=== PATIENT | female | born 1930 | race Caucasian/White ===

== ENCOUNTER 2017-02-09 13:53 | Inpatient (IN) | payer OTHER, MEDICAID ==
[~2017-02-09] VITALS: Ht 144.8 cm; Wt 67.6 kg
[2017-02-09] MEDS ORDERED: MORPHINE SULFATE 4 MG/ML CPJ (NOT FOR IM USE) IV STA (14:44)
[2017-02-09] MEDS ORDERED: NITROGLYCERIN OINT 1GM/INCH UDPKT TD STA (14:44)
[2017-02-09] MEDS ORDERED: ASPIRIN 325MG EC TABLET PO ONE (14:45)
[2017-02-09 15:18] LABS: BASOPHILS % 0.9 % (0.0-2.0); HEMATOCRIT. 35.5 % (36.0-48.0); HEMOGLOBIN. 11.4 g/dL (12.0-16.0); LYMPHOCYTES % 20.9 % (20.0-50.0); MEAN CORPUSCULAR HEMOGLOBIN 28.3 pg (28.0-32.0); MEAN CORPUSCULAR VOLUME 88.3 fL (81.0-99.0); MEAN PLATELET VOLUME 9.1 fl (7.4-10.4); NEUTROPHILS % 67.2 % (40.0-76.0); PLATELET 163 x1000/uL (130-400); RED BLOOD CELL COUNT 4.02 mill/uL (4.2-5.4); RED CELL DISTRIBUTION WIDTH 24.7 % (11.6-14.6)
[2017-02-09 15:25] LABS: CHLORIDE 103 mEq/L (98-107)
[2017-02-09 15:30] LABS: CARBON DIOXIDE 32 mEq/L (21-32)
[2017-02-09 15:35] LABS: TROPONIN I < 0.02 ng/mL (0.00-0.04)
[2017-02-09 16:16] LABS: PLATELET ESTIMATE NORMAL
[2017-02-09 21:30] VITALS: BP 151/92
[2017-02-09] MEDS ORDERED: CALCIUM (22:37)
[2017-02-09] MEDS ORDERED: FLOV44 IH (22:37)
[2017-02-09] MEDS ORDERED: CARV12.545 PO (22:37)
[2017-02-09] MEDS ORDERED: DABI150C PO (22:37)
[2017-02-09] MEDS ORDERED: LACT1CAP68 PO (22:37)
[2017-02-09] MEDS ORDERED: FURO20TA4 PO (22:37)
[2017-02-09] MEDS ORDERED: FERR325T6 PO (22:37)
[2017-02-09] MEDS ORDERED: AMIO100T4 PO (22:37)
[2017-02-09] MEDS ORDERED: LEVO88TA7 PO (22:37)
[2017-02-09] MEDS ORDERED: LOSA25TA12 PO (22:37)
[2017-02-09] MEDS ORDERED: CHOL100044 PO (22:37)
[2017-02-09] MEDS ORDERED: GLUC100017 PO (22:37)
[2017-02-09] MEDS ORDERED: MECL-109 PO (22:37)
[2017-02-09] MEDS ORDERED: ALBU18HF2 IH (22:37)
[2017-02-09] MEDS ORDERED: ACET167L14 PO (22:37)
[2017-02-09] MEDS ORDERED: ONDANSETRON HCL 4MG/2ML VIAL IV PRN (23:00)
[2017-02-09] MEDS ORDERED: ACETAMINOPHEN 325MG TABLET PO PRN (23:00)
[2017-02-09] MEDS ORDERED: CLONIDINE 0.1MG TABLET PO PRN (23:00)
[2017-02-09] MEDS ORDERED: METOPROLOL TARTRATE 50MG TABLET PO SCH (23:45)
[2017-02-10] VITALS (7 sets, daily range): BP systolic 120–155; BP diastolic 38–78
[2017-02-10] MEDS: METHYLPREDNISOLONE SOD SUCC 40 MG/ML VIAL IV SCH ×5 (00:10→22:50)
[2017-02-10] MEDS: ENOXAPARIN 40MG/0.4ML SYR SUBCUT SCH ×2 (00:12→22:39)
[2017-02-10 06:22] LABS: BASOPHILS % 0.8 % (0.0-2.0); EOSINOPHILS % 0.3 % (0.0-5.0); HEMOGLOBIN. 11.4 g/dL (12.0-16.0); LYMPHOCYTES % 14.1 % (20.0-50.0); MEAN CORPUSCULAR HEMOGLOBIN 28.3 pg (28.0-32.0); MEAN CORPUSCULAR VOLUME 88.9 fL (81.0-99.0); MEAN PLATELET VOLUME 8.4 fl (7.4-10.4); MONOCYTES % 2.2 % (2.0-8.0); NEUTROPHILS % 82.6 % (40.0-76.0); PLATELET 156 x1000/uL (130-400); RED BLOOD CELL COUNT 4.05 mill/uL (4.2-5.4); RED CELL DISTRIBUTION WIDTH 24.2 % (11.6-14.6)
[2017-02-10 07:40] LABS: CARBON DIOXIDE 32 mEq/L (21-32); CHLORIDE 101 mEq/L (98-107); CREATINE KINASE 61 IU/L (26-192); CREATINE KINASE MB FRACTION 1.8 ng/mL (0.5-3.6); HDL CHOLESTEROL 86 mg/dL (40-59); LDL CHOLESTEROL 60 mg/dL (5-100); T4 FREE 1.01 ng/dL (0.76-1.46); TROPONIN I < 0.02 ng/mL (0.00-0.04)
[2017-02-10] MEDS: IPRATROPIUM/ALBUTEROL 0.5-3(2.5)MG/3ML NEB INH SCH ×4 (08:47→21:14)
[2017-02-10] MEDS ORDERED: FUROSEMIDE 40MG/4ML VIAL IV SCH (09:00)
[2017-02-10] MEDS ORDERED: METOPROLOL TARTRATE 50MG TABLET PO SCH (09:00)
[2017-02-10] MEDS: LEVOTHYROXINE SODIUM 100MCG TABLET PO SCH (09:16)
[2017-02-10 17:16] LABS: CREATINE KINASE 66 IU/L (26-192); CREATINE KINASE MB FRACTION 1.6 ng/mL (0.5-3.6); TROPONIN I < 0.02 ng/mL (0.00-0.04)
[2017-02-10] MEDS: FUROSEMIDE 40MG/4ML VIAL IVP SCH (18:23)
[2017-02-11] VITALS: BP 132/46
[2017-02-11 04:00] VITALS: BP 91/52
[2017-02-11] MEDS: LEVOTHYROXINE SODIUM 100MCG TABLET PO SCH (06:23)
[2017-02-11] MEDS: METHYLPREDNISOLONE SOD SUCC 40 MG/ML VIAL IV SCH ×2 (06:23→14:00)
[2017-02-11 07:48] VITALS: BP 157/51
[2017-02-11] MEDS: FUROSEMIDE 40MG/4ML VIAL IVP SCH (08:47)
[2017-02-11] MEDS: IPRATROPIUM/ALBUTEROL 0.5-3(2.5)MG/3ML NEB INH SCH ×3 (09:30→16:04)
[2017-02-11 12:00] VITALS: BP 168/46
[2017-02-11 14:58] VITALS: BP 155/85
[2017-02-11 16:00] VITALS: BP 165/58
== END 2017-02-11 17:12 | disposition home or self-care (01) | DRG 291 ==
LOC: ER 16:10 → OBSVTOIN 17:50 → INTOOBSV 17:50 → 6WST 17:50 → ENRESERV 19:30 → 6WST 23:20
PROVIDERS: ADMIT Internal Medicine; ATTEND Internal Medicine
DX: I11.0 Hypertensive heart disease with heart failure (principal); J96.00 Acute respiratory failure, unspecified whether with hypoxia or hypercapnia; J44.1 Chronic obstructive pulmonary disease with (acute) exacerbation; I48.0 Paroxysmal atrial fibrillation; Z99.81 Dependence on supplemental oxygen; E03.9 Hypothyroidism, unspecified; E66.9 Obesity, unspecified; Z68.32 Body mass index [BMI] 32.0-32.9, adult; Z79.899 Other long term (current) drug therapy; Z88.6 Allergy status to analgesic agent; Z90.710 Acquired absence of both cervix and uterus; I50.33 Acute on chronic diastolic (congestive) heart failure
CPT/HCPCS: 36415; 71010; 80048; 80053; 80061; 82550; 82553; 83605; 83690; 83880; 84439; 84443; 84484; 85025; 87040; 87070; 93005; 93306; 94640; 94664; 96374; 97162; 99285; C1893; G0378; J1650; J1940; J2270; J2920; J7620